=== PATIENT | male | born 1975 | race Caucasian/White ===

== ENCOUNTER 2016-09-22 07:26 | Emergency (ER) | payer OTHER, MEDICAID ==
[2016-09-22 07:38] VITALS: BP 114/77
[2016-09-22] MEDS ORDERED: Promethazine 25 MG in Sodium Chloride 0.9% 50 ML IV PRN (07:43)
[2016-09-22] MEDS ORDERED: Lactated Ringers 1,000 ML IV SCH (07:45)
--- NOTE | 2016-09-22 07:55 | EDM.PDOC ---
<Lazara Bustillo - Last Filed: 09/22/16 07:50> ED HPI GENERAL MEDICAL PROBLEM - General Chief Complaint: General Stated Complaint: VOMITTING Time Seen by Provider: 09/22/16 07:45 Source of Information: Reports: Patient History Limitations: Reports: No limitations - History of Present Illness INITIAL COMMENTS - FREE TEXT/NARRATIVE: Patient presents to ER with complaints of nausea and vomiting for the last 45 minutes. States he awoke and felt dizzy. Sat at his computer desk and was dizzy and proceed to have multiple episodes of vomiting. Also has had 2 episodes of diarrhea. Patient does have a history of vertigo. Has had canalith repositioning twice in the past but has never had nausea or vomiting with this. Patient denies having any unusual food intake. No exposure to anyone with GE. No abdominal pain. No blood in his stool. No fevers. Onset: today, sudden Duration: Minutes:, Constant Location: Reports: abdomen Severity: severe Improves with: Reports: None Worsens with: Reports: Eating (states anything he takes in,he vomits) Associated Symptoms: Reports: headaches, nausea/vomiting. Denies: chest pain, cough, diaphoresis, fever/chills, shortness of breath Headache Pain Score (Numeric/FACES): 8 - Related Data Allergies Allergy/AdvReac Type Severity Reaction Status Date / Time Penicillins Allergy Rash Verified 09/22/16 07:30 Home Meds: Home Meds Propranolol HCl [Propranolol] 60 mg PO DAILY 09/22/16 [History] buPROPion [Wellbutrin XL] 150 mg PO DAILY 09/22/16 [History] Past Medical History - Past Health History Medical/Surgical History: Denies Medical/Surgical History Cardiovascular History: Reports: High cholesterol Neurological History: Reports: Migraines Psychiatric History: Reports: Anxiety, Depression Social & Family History - Tobacco Use Smoking Status *Q: Former Smoker Years of Tobacco use: 30 Packs/Tins Daily: 2 Used Tobacco, but Quit: Yes Month Tobacco Last Used: unknown - Caffeine Use Caffeine Use: Reports: Coffee - Recreational Drug Use Recreational Drug Use: No ED ROS GENERAL - Review of Systems Review Of Systems: See Below Constitutional: Reports: weakness. Denies: fever, chills, malaise, decreased appetite HEENT: Reports: No symptoms Respiratory: Reports: No Symptoms Cardiovascular: Reports: No symptoms Endocrine: Reports: fatigue GI/Abdominal: Reports: Diarrhea, Nausea, Vomiting. Denies: Abdominal pain, Black stool, Bloody stool : Reports: no symptoms Musculoskeletal: Reports: no symptoms Skin: Reports: no symptoms Neurological: Reports: No Symptoms ED EXAM, GENERAL - Physical Exam Exam: See Below Exam Limited By: No limitations General Appearance: alert, WD/WN, mild distress Ears: normal external exam, normal TMs Nose: normal inspection, normal mucosa, no blood Throat/Mouth: Normal inspection, Normal oropharynx Head: normocephalic Neck: normal inspection, supple, non-tender Respiratory/Chest: no respiratory distress, lungs clear, normal breath sounds Cardiovascular: regular rate, rhythm GI/Abdominal: Normal Bowel Sounds, Soft, Non-Tender Neurological: alert, oriented Psychiatric: normal affect, normal mood Skin Exam: Warm, Dry Course - Vital Signs Last Recorded V/S: Last Vital Signs Temp 96.7 F 09/22/16 07:32 Pulse 66 09/22/16 07:32 Resp 18 09/22/16 07:32 BP 114/77 09/22/16 07:32 Pulse Ox 99 09/22/16 07:32 - Orders/Labs/Meds Orders: Active Orders 24 hr Category Date Time Status Abdomen 2V AP Flat Upright [CR] Stat Exams 09/22/16 07:53 Taken Ketorolac [Toradol] Med 09/22/16 09:17 Once 60 mg IM ONETIME ONE Lactated Ringers [Ringers, Lactated] 1,000 ml Med 09/22/16 07:45 Active IV ASDIRECTED Promethazine [Phenergan] 25 mg Med 09/22/16 07:43 Active Sodium Chloride 0.9% [Normal Saline] 50 ml IV Q6H Medication Orders Lactated Ringer's (Ringers, Lactated) 1,000 mls @ 150 mls/hr IV ASDIRECTED ELEANOR Last Admin: 09/22/16 08:05 Dose: 150 mls/hr Promethazine HCl 25 mg/ Sodium (Chloride) 51 mls @ 100 mls/hr IV Q6H PRN PRN Reason: Nausea Last Admin: 09/22/16 08:03 Dose: 100 mls/hr Ketorolac Tromethamine (Toradol) 60 mg IM ONETIME ONE Stop: 09/22/16 09:18 Labs: Laboratory Tests 09/22/16 09/22/16 Range/Units 08:02 08:02 WBC 8.6 (5.0-10.0) 10^3/uL RBC 4.77 (4.50-6.00) 10^6/uL Hgb 15.1 (14.0-18.0) g/dL Hct 45.1 (40.0-54.0) % MCV 94.5 H (82.0-94.0) fL MCH 31.7 (27.0-32.0) pg MCHC 33.5 (33.0-38.0) g/dL RDW Coeff of Kateryna 12.2 (11.0-15.0) % Plt Count 258 (150-400) 10^3/uL Neut % (Auto) 51.8 (35-85) % Lymph % (Auto) 34.7 (10-55) % [place] % (Auto) 9.1 (0-16) % Eos % (Auto) 3.2 (0-5) % Baso % (Auto) 1.2 (0-3) % Neut # (Auto) 4.43 (1.80-7.00) 10^3/uL Lymph # (Auto) 2.97 (1.00-4.80) 10^3/uL [place] # (Auto) 0.78 (0.00-0.80) 10^3/uL Eos # (Auto) 0.27 (0.00-0.45) 10^3/uL Baso # (Auto) 0.10 10^3/uL Sodium 140 (136-145) mEq/L Potassium 4.4 (3.5-5.0) mEq/L Chloride 102 (98-106) mEq/L Carbon Dioxide 28 (21-32) mmol/L BUN 15 D (7-18) mg/dL Creatinine 1.1 (0.7-1.3) mg/dL Est Cr Clr Drug Dosing 85.50 mL/min Estimated GFR (MDRD) > 60 (>=60) mL/min Glucose 184 H D (75-99) mg/dL Calcium 8.6 (8.4-10.1) mg/dL Total Bilirubin 0.4 (0.0-1.0) mg/dL AST 30 (15-37) U/L ALT 73 (12-78) U/L Alkaline Phosphatase 134 H (46-116) U/L C-Reactive Protein < 0.2 L (0.2-0.8) mg/dL Total Protein 7.2 (6.4-8.2) g/dL Albumin 4.1 (3.4-5.0) g/dL Amylase 86 (25-115) U/L Meds: Medications Generic Name Dose Route Start Last Admin Trade Name Freq PRN Reason Stop Dose Admin Lactated Ringer's 1,000 mls @ 150 mls/hr 09/22/16 07:45 09/22/16 08:05 Ringers, Lactated IV 150 mls/hr ASDIRECTED ELEANOR Administration Promethazine HCl 25 mg/ Sodium 51 mls @ 100 mls/hr 09/22/16 07:43 09/22/16 08 :03 Chloride IV 100 mls/hr Q6H PRN Administration Nausea Ketorolac Tromethamine 60 mg 09/22/16 09:17 Toradol IM 09/22/16 09:18 ONETIME ONE Departure - Departure Disposition: Home, Self-Care 01 Clinical Impression: Gastroenteritis, Head ache - Discharge Information Forms: ED Department Discharge - My Orders Last 24 Hours: My Active Orders 09/22/16 09:17 Ketorolac [Toradol] 60 mg IM ONETIME ONE - Assessment/Plan Last 24 Hours: My Active Orders 09/22/16 09:17 Ketorolac [Toradol] 60 mg IM ONETIME ONE <Kelly Morales - Last Filed: 09/22/16 09:25> Course - Re-Assessments/Exams Free Text/Narrative Re-Assessment/Exam: 09/22/16 09:18 reevaluated as he has been resting. No diarrhea or vomiting in the last hour. Does still have a headache that isn't getting better. Is sipping on clear liquids and is tolerating it well. Will give Toradol for headache and then discharge to go home and rest Departure - Departure Time of Disposition: 09:21 Condition: good - Problem List & Annotations (1) Gastroenteritis SNOMED Code(s): 82266320 Code(s): K52.9 - NONINFECTIVE GASTROENTERITIS AND COLITIS, UNSPECIFIED Status: Acute Priority: High (2) Head ache SNOMED Code(s): 62234794 Code(s): R51 - HEADACHE Status: Acute Priority: Medium Qualifiers: Headache type: tension-type Headache chronicity pattern: acute headache Intractability: intractable Qualified Code(s): G44.201 - Tension-type headache , unspecified, intractable - Problem List Review Problem List Initiated/Reviewed/Updated: Yes - Assessment/Plan Assessment:: Zofran to use every 8 hours as needed for nausea Start with clear liquids and advance as tolerates to solid foods. Avoid milk and milk products until 24 hours after diarrhea and nausea are resolved. Recheck in clinic if any new concerns noted.
[2016-09-22 08:17] LABS: CHLORIDE,CL 102 mEq/L (98-106); SODIUM,NA 140 mEq/L (136-145)
[2016-09-22] MEDS ORDERED: Ketorolac 60 MG/2 ML SDV IM ONE (09:17)
== END 2016-09-22 09:43 | disposition home or self-care (01) ==
LOC: CC.ED 07:26
DX: K52.9 Noninfective gastroenteritis and colitis, unspecified (principal); R51 Headache; E78.00 Pure hypercholesterolemia, unspecified; F41.9 Anxiety disorder, unspecified; F32.9 Major depressive disorder, single episode, unspecified; Z88.0 Allergy status to penicillin; Z79.899 Other long term (current) drug therapy; Z87.891 Personal history of nicotine dependence; R21 Rash and other nonspecific skin eruption
CPT/HCPCS: 36415; 74020; 80053; 82150; 85025; 86140; 96361; 96365; 96372; 99284; J1885; J2550; J7050; J7120; 96366; 96368

== ENCOUNTER 2016-12-20 14:16 | Emergency (ER) | payer MEDICAID, OTHER ==
[2016-12-20 14:25] VITALS: BP 148/90
--- NOTE | 2016-12-21 08:53 | EDM.PDOC ---
ED HPI GENERAL MEDICAL PROBLEM - General Chief Complaint: General Stated Complaint: CHECKED OUT FOR MENTAL HEALTH Time Seen by Provider: 12/20/16 15:10 Source of Information: Reports: Patient, Family, Police History Limitations: Reports: No Limitations - History of Present Illness INITIAL COMMENTS - FREE TEXT/NARRATIVE: Nicolas is a 41 yo male who presents to the ER via [facility]. Nicolas states he was having some suicidal thoughts today. States a close friend who is typically there to listen to him called the calender tender on him today with concerns of committing suicide. He states he had no intentions on doing anything but does admit he did express to her he was going to do it. He has dealt with depression and suicidal thoughts in the past. Has been to inpatient therapy as well at [facility]. He admits he didn't see any benefit from it. He has been on multiple anti-depressants as well. He admits he has made some mistakes recently. He made a bad decision to drive and ended up getting a DUI not to long ago. Has been switching jobs as well. Finds it to be some harder times right now. However, he does admit he we would never commit suicide as he loves his family and would never do that to him. States he says a lot of things out of anger, frustration and hurt. - Related Data Allergies Allergy/AdvReac Type Severity Reaction Status Date / Time Penicillins Allergy Rash Verified 12/20/16 14:22 Home Meds: Home Meds Propranolol HCl [Propranolol] 60 mg PO DAILY 09/22/16 [History] Past Medical History - Past Health History Medical/Surgical History: Denies Medical/Surgical History Cardiovascular History: Reports: High Cholesterol Neurological History: Reports: Migraines Psychiatric History: Reports: Anxiety, Depression Social & Family History - Tobacco Use Smoking Status *Q: Current Every Day Smoker Years of Tobacco use: 30 Packs/Tins Daily: 1 Used Tobacco, but Quit: Yes Month Tobacco Last Used: unknown - Caffeine Use Caffeine Use: Reports: Energy Drinks, Soda - Recreational Drug Use Recreational Drug Use: No ED ROS GENERAL - Review of Systems Review Of Systems: ROS reveals no pertinent complaints other than HPI. Constitutional: Reports: No Symptoms Neurological: Reports: No Symptoms Psychiatric: Reports: Depression, Suicidal Ideation. Denies: Homicidal Ideation ED EXAM, GENERAL - Physical Exam Exam: See Below Exam Limited By: No Limitations General Appearance: Alert, No Apparent Distress Neurological: Alert, Oriented, Normal Cognition, No Motor/Sensory Deficits Psychiatric: Normal Affect, Normal Mood, Other (Nicolas is well known to myself and have treated him in the past for depression, etc... He is calm and cooperative. No suicidal intentions. ) Skin Exam: Warm, Dry, Intact, Normal Color Course - Vital Signs Last Recorded V/S: Last Vital Signs Temp 99.0 F 12/20/16 14:23 Pulse 94 12/20/16 14:23 Resp 16 12/20/16 14:23 BP 148/90 H 12/20/16 14:23 Pulse Ox 99 12/20/16 14:23 - Re-Assessments/Exams Free Text/Narrative Re-Assessment/Exam: 45 minutes spent in consultation with Nicolas, the feed research technician and Nicolas's mother. Discussed into detail his current situation and his frustration with a female and current events happening in his life. I encourage and recommended he refrain from speaking to this individual anymore. He completely verbalized understanding and was in agreement. Mother feels he will be safe at home and someone in the family will be with him. Nicolas voiced his feelings to his mother as well and she is willing to help him with whatever he needs for support and is willing to listen to him. Nicolas does not appear to be suicidal at this time. He voiced again he has no intentions on hurting himself and again expressed his words were not appropriate as he has no intentions on hurting himself. He is going thru a hard time in life right now figuring out his job situation, paying his bills and finding his self worth. He is going to come into the clinic on Monday for follow up and promised he would be here. We discussed into detail what we can do to help him. He currently wants to refrain from any medications, as he has been on and tried multiple thru out his life, which never seemed to help him. We will look at other outpatient support groups, counseling, etc... He was in agreement with this. Departure - Departure Time of Disposition: 16:00 Disposition: Home, Self-Care 01 Clinical Impression: Depression with suicidal ideation, Emotional stress - Discharge Information Referrals: PCP,None [Primary Care Provider] - Forms: ED Department Discharge Additional Instructions: 1) Recheck MondayDecember 23 at 8:00am 2) Please talk to your family members they are there to listen 3) Recommend being in presence of someone you trust until follow up appointment. 4) If at any point you feel you need to talk to us, please come in sooner, we are here 24 hours a day. - Problem List & Annotations (1) Depression with suicidal ideation SNOMED Code(s): 90704100 Code(s): F32.9 - MAJOR DEPRESSIVE DISORDER, SINGLE EPISODE, UNSPECIFIED; R45.851 - SUICIDAL IDEATIONS Status: Acute (2) Emotional stress Status: Acute - Problem List Review Problem List Initiated/Reviewed/Updated: Yes - Assessment/Plan Plan: Will discharge home at this time with his mother. Long discussion with Nicolas and his mother about being discharged home, which they both verbalized they were comfortable with. Will have recheck appointment in clinic on Monday.
== END 2016-12-20 16:08 | disposition home or self-care (01) ==
LOC: CC.ED 14:16
DX: F32.9 Major depressive disorder, single episode, unspecified (principal); R45.851 Suicidal ideations; F43.8 Other reactions to severe stress; G43.909 Migraine, unspecified, not intractable, without status migrainosus; E78.00 Pure hypercholesterolemia, unspecified; F17.210 Nicotine dependence, cigarettes, uncomplicated; Z88.0 Allergy status to penicillin; Z79.899 Other long term (current) drug therapy
CPT/HCPCS: 99283